=== PATIENT | male | born 1980 | race Caucasian/White ===

== ENCOUNTER 2022-11-19 14:25 | Emergency (ER) | payer MEDICAID ==
[~2022-11-19] VITALS: Ht 172.7 cm; Wt 80.7 kg
[2022-11-19 14:56] VITALS: BP 110/57
[2022-11-19] MEDS ORDERED: BACI-416 TP (16:34)
[2022-11-19] MEDS ORDERED: BACITRACIN OINT 500 UNITS/GM PKT TP ONE (16:35)
[2022-11-19 16:50] VITALS: BP 110/57
--- NOTE | 2022-11-19 16:53 | NUR ---
Patient discharged with v/s stable. Written and verbal after care instructions given and explained. Patient alert, oriented and verbalized understanding of instructions. Ambulatory with steady gait. All questions addressed prior to discharge. ID band removed. Patient advised to follow up with PMD. Rx of bacitracin (sent) given. Patient educated on indication of medication including possible reaction and side effects. Opportunity to ask questions provided and answered. work note provided
== END 2022-11-19 16:53 | disposition home or self-care (01) ==
LOC: MED 14:25
DX: T25.212A Burn of second degree of left ankle, initial encounter (principal); T31.0 Burns involving less than 10% of body surface; X08.8XXA Exposure to other specified smoke, fire and flames, initial encounter; Y93.89 Activity, other specified; Y92.89 Other specified places as the place of occurrence of the external cause; Y99.8 Other external cause status
CPT/HCPCS: 16020; 99282